=== PATIENT | female | born 1935 | race Caucasian/White ===

== ENCOUNTER 2022-06-18 17:32 | Emergency (ER) | payer MEDICARE ==
[~2022-06-18] VITALS: Ht 154.9 cm; Wt 46.7 kg
[2022-06-18 18:06] VITALS: BP 133/80
[2022-06-18 20:10] LABS: BASO % 0.2 % (0.0-1.0); HEMATOCRIT 38.7 % (37.0-47.0); LYMPH # 0.6 10*3/uL (1.3-4.4); MEAN CELL VOLUME 95.3 fl (81.0-99.0); MEAN CORPUSCULAR HGB 32.5 pg (27.0-31.0); MEAN CORPUSCULAR HGB CONC 34.1 g/dl (33.0-37.0); MEAN PLATELET VOLUME 10.1 fl (9.6-12.3); MONO # 0.1 10*3/uL (0.1-1.0); MONO % 1.3 % (3.0-9.0); NEUT # 4.7 10*3/uL (2.3-7.9); NEUT % 86.9 % (47.0-73.0); PLATELET COUNT AUTOMATED 387 10*3/uL (130-400); RED BLOOD COUNT 4.06 10*6/uL (4.10-5.10); WHITE BLOOD COUNT 5.4 10*3/uL (4.8-10.8)
[2022-06-18 20:27] LABS: ALKALINE PHOSPHATASE 46 U/L (46-116); BUN 11 mg/dl (9-23); CHLORIDE 103 mmol/L (98-107); CPK 194 U/L (34-171); CREATININE 0.87 mg/dL (0.55-1.02); POTASSIUM 2.9 mmol/L (3.4-5.1); SGPT/ALT 19 U/L (10-49); SODIUM 139 mmol/L (136-145); TOTAL PROTEIN 5.9 gm/dL (6.0-8.0)
[2022-06-18 20:39] LABS: ETHYL ALCOHOL < 3.0 mg/dl (<3)
[2022-06-18 22:13] LABS: BILIRUBIN Negative (Negative); BLOOD Negative (Negative); CLARITY Clear (Clear); COLOR Yellow (Yellow); GLUCOSE Negative (Negative); KETONE Trace (Negative); LEUKO ESTERASE 2+ (Negative); NITRITE Negative (Negative); UROBILINOGEN 0.2 E.U./dl (0.0-1.0)
[2022-06-18] MEDS ORDERED: COLESTIPOL HYDRO1 GM PO (22:26)
[2022-06-18] MEDS ORDERED: FAMOTIDINE40 MG PO (22:27)
[2022-06-18] MEDS ORDERED: AMLODIPINE BESYL5 MG PO (22:27)
[2022-06-18] MEDS ORDERED: PRAVASTATIN SOD20 MG PO (22:28)
[2022-06-18] MEDS ORDERED: Carafate1 GM PO (22:28)
[2022-06-18] MEDS ORDERED: PANTOPRAZOLE SO40 MG PO (22:29)
[2022-06-18] MEDS ORDERED: METOPROLOL TAR100 M1 PO (22:29)
[2022-06-18] MEDS ORDERED: ZIPRASIDONE HCL20 M1 PO (22:29)
[2022-06-18 22:30] LABS: URINE AMPHETAMINES Negative (1000ng/ml); URINE BARBITURATES Negative (200ng/ml); URINE BENZODIAZEPINES Negative (200ng/ml)
[2022-06-18] MEDS ORDERED: MEMANTINE HCL10 MG PO (22:30)
[2022-06-18 22:31] LABS: URINE CANNABINOIDS (THC) Negative (50ng/ml); URINE COCAINE Negative (300ng/ml); URINE METHADONE Negative (300ng/ml); URINE OPIATES Negative (300ng/ml); URINE PHENCYCLIDINE Negative (25ng/ml)
[2022-06-18 22:54] LABS: BACTERIA TRACE; EPITHELIAL CELLS 21-30; WBC 31-40 wbc/hpf (0-5)
[2022-06-18 23:29] VITALS: BP 122/71
[2022-06-19 01:28] VITALS: BP 103/57
[2022-06-19 02:23] VITALS: BP 94/56
[2022-06-19 04:03] VITALS: BP 108/62
[2022-06-19 04:27] VITALS: BP 123/69
[2022-06-19 07:47] VITALS: BP 125/69
== END 2022-06-19 15:42 | disposition admitted as inpatient to this hospital (09) ==
LOC: ED 17:32 → EDHOLD 06-19 15:30 → ED 06-19 15:42
PROVIDERS: Emergency Medicine
DX: F03.90 Unspecified dementia, unspecified severity, without behavioral disturbance, psychotic disturbance, mood disturbance, and anxiety (principal); Z20.822 Contact with and (suspected) exposure to COVID-19; E87.6 Hypokalemia; N39.0 Urinary tract infection, site not specified; Z13.89 Encounter for screening for other disorder

== ENCOUNTER 2022-06-19 13:19 | Inpatient (IN) | payer MEDICARE ==
[~2022-06-19 13:19] MED LIST: AMLODIPINE BESYL5 MG PO; COLESTIPOL HYDRO1 GM PO; Carafate1 GM PO; FAMOTIDINE40 MG PO; MEMANTINE HCL10 MG PO; METOPROLOL TAR100 M1 PO; PANTOPRAZOLE SO40 MG PO; PRAVASTATIN SOD20 MG PO; ZIPRASIDONE HCL20 M1 PO
[2022-06-19 20:00] VITALS: BP 158/79
[2022-06-20 07:15] LABS: BASO # 0.1 10*3/uL (0.0-0.1); BASO % 0.5 % (0.0-1.0); EOS # 0.2 10*3/uL (0.0-0.4); EOS % 1.5 % (1.0-4.0); LYMPH # 2.7 10*3/uL (1.3-4.4); LYMPH % 26.2 % (27.0-41.0); MEAN CELL VOLUME 96.2 fl (81.0-99.0); MEAN CORPUSCULAR HGB 33.1 pg (27.0-31.0); MEAN CORPUSCULAR HGB CONC 34.4 g/dl (33.0-37.0); MEAN PLATELET VOLUME 10.1 fl (9.6-12.3); MONO # 0.5 10*3/uL (0.1-1.0); MONO % 5.2 % (3.0-9.0); NEUT # 6.9 10*3/uL (2.3-7.9); NEUT % 66.4 % (47.0-73.0); PLATELET COUNT AUTOMATED 414 10*3/uL (130-400); RED BLOOD COUNT 4.47 10*6/uL (4.10-5.10); RED CELL DISTRI WIDTH 13.5 % (0-14.5); WHITE BLOOD COUNT 10.4 10*3/uL (4.8-10.8)
[2022-06-20 08:00] VITALS: BP 154/80
[2022-06-20 08:51] LABS: VITAMIN D, 25-HYDROXY 22.4 ng/mL (30-100)
[2022-06-20 11:28] LABS: THYROID STIM HORMONE (HS) 1.733 uIU/ml (0.550-4.780)
[2022-06-20 11:35] LABS: ALKALINE PHOSPHATASE 47 U/L (46-116); BUN 13 mg/dl (9-23); CHLORIDE 106 mmol/L (98-107); CREATININE 0.76 mg/dL (0.55-1.02); POTASSIUM 3.2 mmol/L (3.4-5.1); SGPT/ALT 23 U/L (10-49); SODIUM 141 mmol/L (136-145); TRIGLYCERIDES 98 mg/dl (<150)
[2022-06-20 11:37] LABS: CHOLESTEROL 117 mg/dL (<200); LDL CHOLESTEROL 40 mg/dL (9-159); TOTAL PROTEIN 6.1 gm/dL (6.0-8.0)
[2022-06-20 20:00] VITALS: BP 118/57
[2022-06-21 07:24] LABS: BUN 8 mg/dl (9-23); CHLORIDE 106 mmol/L (98-107); CREATININE 0.55 mg/dL (0.55-1.02); POTASSIUM 3.5 mmol/L (3.4-5.1); SODIUM 143 mmol/L (136-145)
[2022-06-21 07:57] VITALS: BP 117/73
== END 2022-06-21 17:14 | disposition short-term general hospital (02) | DRG 885 ==
LOC: 3N 13:19
PROVIDERS: Internal Medicine; ADMIT Psychiatry & Neurology Psychiatry; ATTEND Psychiatry & Neurology Psychiatry
PROC: GZHZZZZ Group Psychotherapy (ICD-10-PCS; principal; 2022-06-19)
DX: F33.2 Major depressive disorder, recurrent severe without psychotic features (principal); U07.1 COVID-19; G30.9 Alzheimer's disease, unspecified; F02.80 Dementia in other diseases classified elsewhere, unspecified severity, without behavioral disturbance, psychotic disturbance, mood disturbance, and anxiety; I10 Essential (primary) hypertension; K21.9 Gastro-esophageal reflux disease without esophagitis; E78.00 Pure hypercholesterolemia, unspecified; F20.9 Schizophrenia, unspecified; E87.6 Hypokalemia; D75.839 Thrombocytosis, unspecified; E55.9 Vitamin D deficiency, unspecified; Z79.899 Other long term (current) drug therapy

== ENCOUNTER 2022-06-21 18:28 | Inpatient (IN) | payer MEDICARE ==
[~2022-06-21] VITALS: Ht 147.3 cm; Wt 45.9 kg
[2022-06-21 18:30] VITALS: BP 134/68
[2022-06-21 20:00] VITALS: BP 122/72
[2022-06-22] VITALS: BP 118/69
[2022-06-22 07:46] LABS: BASO % 0.5 % (0.0-1.0); EOS % 0.5 % (1.0-4.0); HEMATOCRIT 42.7 % (37.0-47.0); LYMPH % 15.9 % (27.0-41.0); MEAN CELL VOLUME 98.4 fl (81.0-99.0); MEAN CORPUSCULAR HGB 32.9 pg (27.0-31.0); MEAN CORPUSCULAR HGB CONC 33.5 g/dl (33.0-37.0); MEAN PLATELET VOLUME 10.6 fl (9.6-12.3); MONO # 0.6 10*3/uL (0.1-1.0); MONO % 8.7 % (3.0-9.0); NEUT # 4.8 10*3/uL (2.3-7.9); NEUT % 74.2 % (47.0-73.0); PLATELET COUNT AUTOMATED 252 10*3/uL (130-400); RED BLOOD COUNT 4.34 10*6/uL (4.10-5.10); RED CELL DISTRI WIDTH 13.9 % (0-14.5); WHITE BLOOD COUNT 6.4 10*3/uL (4.8-10.8)
[2022-06-22 07:57] LABS: ACT PARTIAL THROMBO TIME 24.4 SECONDS (20.0-32.1)
[2022-06-22 08:00] VITALS: BP 120/63
[2022-06-22 08:04] LABS: ALKALINE PHOSPHATASE 38 U/L (46-116); BUN 14 mg/dl (9-23); CHLORIDE 109 mmol/L (98-107); CREATININE 0.69 mg/dL (0.55-1.02); POTASSIUM 4.2 mmol/L (3.4-5.1); SODIUM 143 mmol/L (136-145); TOTAL PROTEIN 5.7 gm/dL (6.0-8.0)
[2022-06-22 09:20] LABS: SGPT/ALT 18 U/L (10-49)
[2022-06-22 12:00] VITALS: BP 125/92
[2022-06-22 16:00] VITALS: BP 132/74
[2022-06-22 20:00] VITALS: BP 137/86
[2022-06-23] VITALS: BP 158/82
[2022-06-23 05:49] LABS: CHLORIDE 103 mmol/L (98-107); POTASSIUM 4.3 mmol/L (3.4-5.1); SODIUM 136 mmol/L (136-145)
[2022-06-23 05:54] LABS: CREATININE 0.71 mg/dL (0.55-1.02)
[2022-06-23 05:55] LABS: BUN 12 mg/dl (9-23)
[2022-06-23 06:31] LABS: BASO # 0.1 10*3/uL (0.0-0.1); BASO % 0.8 % (0.0-1.0); EOS # 0.1 10*3/uL (0.0-0.4); EOS % 1.1 % (1.0-4.0); LYMPH # 1.3 10*3/uL (1.3-4.4); LYMPH % 21.3 % (27.0-41.0); MEAN CELL VOLUME 97.2 fl (81.0-99.0); MEAN CORPUSCULAR HGB 32.6 pg (27.0-31.0); MEAN CORPUSCULAR HGB CONC 33.6 g/dl (33.0-37.0); MONO # 0.4 10*3/uL (0.1-1.0); MONO % 6.1 % (3.0-9.0); NEUT # 4.4 10*3/uL (2.3-7.9); NEUT % 70.5 % (47.0-73.0); PLATELET COUNT AUTOMATED 283 10*3/uL (130-400); RED BLOOD COUNT 4.32 10*6/uL (4.10-5.10); RED CELL DISTRI WIDTH 13.5 % (0-14.5); WHITE BLOOD COUNT 6.3 10*3/uL (4.8-10.8)
[2022-06-23 08:00] VITALS: BP 128/65
[2022-06-23 12:00] VITALS: BP 110/56
[2022-06-23 16:00] VITALS: BP 127/89
[2022-06-23 20:00] VITALS: BP 135/72
[2022-06-24] VITALS: BP 149/78
[2022-06-24 06:24] LABS: BASO # 0.1 10*3/uL (0.0-0.1); EOS % 0.6 % (1.0-4.0); HEMATOCRIT 39.5 % (37.0-47.0); LYMPH # 1.4 10*3/uL (1.3-4.4); LYMPH % 28.4 % (27.0-41.0); MEAN CELL VOLUME 96.3 fl (81.0-99.0); MEAN CORPUSCULAR HGB 32.7 pg (27.0-31.0); MEAN CORPUSCULAR HGB CONC 33.9 g/dl (33.0-37.0); MEAN PLATELET VOLUME 10.1 fl (9.6-12.3); MONO # 0.4 10*3/uL (0.1-1.0); MONO % 7.3 % (3.0-9.0); NEUT # 3.1 10*3/uL (2.3-7.9); NEUT % 62.5 % (47.0-73.0); PLATELET COUNT AUTOMATED 241 10*3/uL (130-400); RED CELL DISTRI WIDTH 12.9 % (0-14.5); WHITE BLOOD COUNT 4.9 10*3/uL (4.8-10.8)
[2022-06-24 06:32] LABS: CHLORIDE 102 mmol/L (98-107); POTASSIUM 3.6 mmol/L (3.4-5.1); SODIUM 134 mmol/L (136-145)
[2022-06-24 06:39] LABS: BUN 10 mg/dl (9-23); CREATININE 0.59 mg/dL (0.55-1.02)
[2022-06-24 08:00] VITALS: BP 132/55
[2022-06-24 12:00] VITALS: BP 119/67
[2022-06-24 16:00] VITALS: BP 117/78
[2022-06-24 20:00] VITALS: BP 135/72
[2022-06-25] VITALS: BP 105/47
[2022-06-25 08:00] VITALS: BP 111/54
[2022-06-25 12:00] VITALS: BP 113/94
[2022-06-25 14:48] LABS: BASO % 0.7 % (0.0-1.0); EOS # 0.1 10*3/uL (0.0-0.4); EOS % 1.7 % (1.0-4.0); HEMATOCRIT 38.8 % (37.0-47.0); LYMPH % 35.4 % (27.0-41.0); MEAN CELL VOLUME 94.4 fl (81.0-99.0); MEAN CORPUSCULAR HGB 32.6 pg (27.0-31.0); MEAN CORPUSCULAR HGB CONC 34.5 g/dl (33.0-37.0); MEAN PLATELET VOLUME 10.3 fl (9.6-12.3); MONO # 0.3 10*3/uL (0.1-1.0); MONO % 9.3 % (3.0-9.0); NEUT # 1.5 10*3/uL (2.3-7.9); NEUT % 52.6 % (47.0-73.0); PLATELET COUNT AUTOMATED 221 10*3/uL (130-400); RED BLOOD COUNT 4.11 10*6/uL (4.10-5.10); RED CELL DISTRI WIDTH 12.7 % (0-14.5); WHITE BLOOD COUNT 2.9 10*3/uL (4.8-10.8)
[2022-06-25 15:02] LABS: ALKALINE PHOSPHATASE 36 U/L (46-116); BUN 12 mg/dl (9-23); CHLORIDE 101 mmol/L (98-107); CREATININE 0.59 mg/dL (0.55-1.02); POTASSIUM 3.2 mmol/L (3.4-5.1); SGPT/ALT 12 U/L (10-49); SODIUM 134 mmol/L (136-145); TOTAL PROTEIN 5.2 gm/dL (6.0-8.0)
[2022-06-25 15:43] LABS: BILIRUBIN Negative (Negative); BLOOD Negative (Negative); CLARITY Clear (Clear); COLOR Yellow (Yellow); GLUCOSE Negative (Negative); KETONE Negative (Negative); LEUKO ESTERASE Negative (Negative); NITRITE Negative (Negative); SPECIFIC GRAVITY 1.015 (1.001-1.030); UROBILINOGEN 0.2 E.U./dl (0.0-1.0)
[2022-06-25 16:00] VITALS: BP 123/77
[2022-06-25 16:21] LABS: BACTERIA 1+; WBC 0-2 wbc/hpf (0-5)
[2022-06-25 20:00] VITALS: BP 165/82
[2022-06-26] VITALS: BP 124/65
[2022-06-26 06:12] LABS: BASO % 0.9 % (0.0-1.0); EOS # 0.1 10*3/uL (0.0-0.4); EOS % 1.8 % (1.0-4.0); LYMPH # 1.7 10*3/uL (1.3-4.4); LYMPH % 50.1 % (27.0-41.0); MEAN CELL VOLUME 95.6 fl (81.0-99.0); MEAN CORPUSCULAR HGB 32.6 pg (27.0-31.0); MEAN CORPUSCULAR HGB CONC 34.1 g/dl (33.0-37.0); MEAN PLATELET VOLUME 10.8 fl (9.6-12.3); MONO # 0.3 10*3/uL (0.1-1.0); MONO % 9.8 % (3.0-9.0); NEUT # 1.3 10*3/uL (2.3-7.9); NEUT % 37.1 % (47.0-73.0); PLATELET COUNT AUTOMATED 237 10*3/uL (130-400); RED BLOOD COUNT 4.29 10*6/uL (4.10-5.10); RED CELL DISTRI WIDTH 12.6 % (0-14.5); WHITE BLOOD COUNT 3.4 10*3/uL (4.8-10.8)
[2022-06-26 06:25] LABS: BUN 11 mg/dl (9-23); CHLORIDE 105 mmol/L (98-107); CREATININE 0.73 mg/dL (0.55-1.02); POTASSIUM 4.1 mmol/L (3.4-5.1); SODIUM 139 mmol/L (136-145)
[2022-06-26 08:00] VITALS: BP 106/78
[2022-06-26 12:00] VITALS: BP 115/61
[2022-06-26 16:00] VITALS: BP 132/84
[2022-06-27] VITALS: BP 126/66
[2022-06-27 06:15] LABS: BUN 10 mg/dl (9-23); CHLORIDE 103 mmol/L (98-107); CREATININE 0.65 mg/dL (0.55-1.02); POTASSIUM 3.4 mmol/L (3.4-5.1); SODIUM 137 mmol/L (136-145)
[2022-06-27 06:17] LABS: BASO % 0.5 % (0.0-1.0); EOS % 0.3 % (1.0-4.0); HEMATOCRIT 40.2 % (37.0-47.0); LYMPH # 1.2 10*3/uL (1.3-4.4); MEAN CORPUSCULAR HGB 32.6 pg (27.0-31.0); MEAN CORPUSCULAR HGB CONC 34.3 g/dl (33.0-37.0); MONO # 0.3 10*3/uL (0.1-1.0); MONO % 8.6 % (3.0-9.0); NEUT # 2.4 10*3/uL (2.3-7.9); NEUT % 61.3 % (47.0-73.0); PLATELET COUNT AUTOMATED 256 10*3/uL (130-400); RED BLOOD COUNT 4.23 10*6/uL (4.10-5.10); RED CELL DISTRI WIDTH 12.7 % (0-14.5)
[2022-06-27 08:00] VITALS: BP 135/69
[2022-06-27] MEDS ORDERED: LOPRESSOR25 MG PO (11:10)
[2022-06-27] MEDS ORDERED: HYDROXYZINE HCL25 MG PO (11:10)
[2022-06-27 12:00] VITALS: BP 100/50
[2022-06-28 03:06] LABS: TOTAL PROTEIN, SERUM 5.4 g/dL (6.0-8.5)
[2022-06-30 15:06] LABS: A/G RATIO 1.2 (0.7-1.7); ALBUMIN 2.9 g/dL (2.9-4.4); ALPHA-1-GLOBULIN 0.3 g/dL (0.0-0.4); BETA GLOBULIN 0.7 g/dL (0.7-1.3); GAMMA GLOBULIN 0.6 g/dL (0.4-1.8); GLOBULIN, TOTAL 2.5 g/dL (2.2-3.9); M-SPIKE Not Observed g/dL (Not Observed); PE INTERPRETATION Comment: (.)
== END 2022-06-27 16:23 | DRG 177 ==
LOC: 4E 18:28
PROVIDERS: Internal Medicine; Registered Nurse; Student in an Organized Health Care Education/Training Program; ADMIT Emergency Medicine; ATTEND Emergency Medicine
PROC: XW033E5 Introduction of Remdesivir Anti-infective into Peripheral Vein, Percutaneous Approach, New Technology Group 5 (ICD-10-PCS; principal; 2022-06-22)
DX: U07.1 COVID-19 (principal); G93.41 Metabolic encephalopathy; F32.2 Major depressive disorder, single episode, severe without psychotic features; E87.6 Hypokalemia; K21.9 Gastro-esophageal reflux disease without esophagitis; I10 Essential (primary) hypertension; E78.5 Hyperlipidemia, unspecified; F03.90 Unspecified dementia, unspecified severity, without behavioral disturbance, psychotic disturbance, mood disturbance, and anxiety; E55.9 Vitamin D deficiency, unspecified; D75.839 Thrombocytosis, unspecified; D70.9 Neutropenia, unspecified

== ENCOUNTER 2022-10-05 21:19 | Emergency (ER) | payer MEDICARE ==
[~2022-10-05] VITALS: Ht 160 cm; Wt 50.8 kg
[~2022-10-05 21:19] MED LIST changes: +HYDROXYZINE HCL25 MG PO; +LOPRESSOR25 MG PO
[2022-10-05 21:50] LABS: BASO # 0.1 10*3/uL (0.0-0.1); BASO % 0.9 % (0.0-1.0); EOS # 0.1 10*3/uL (0.0-0.4); EOS % 1.5 % (1.0-4.0); HEMATOCRIT 41.6 % (37.0-47.0); LYMPH # 2.1 10*3/uL (1.3-4.4); LYMPH % 30.4 % (27.0-41.0); MEAN CELL VOLUME 97.2 fl (81.0-99.0); MEAN CORPUSCULAR HGB CONC 32.9 g/dl (33.0-37.0); MEAN PLATELET VOLUME 9.7 fl (9.6-12.3); MONO # 0.5 10*3/uL (0.1-1.0); MONO % 6.8 % (3.0-9.0); NEUT # 4.1 10*3/uL (2.3-7.9); NEUT % 60.3 % (47.0-73.0); PLATELET COUNT AUTOMATED 353 10*3/uL (130-400); RED BLOOD COUNT 4.28 10*6/uL (4.10-5.10); WHITE BLOOD COUNT 6.8 10*3/uL (4.8-10.8)
[2022-10-05 22:05] LABS: ALKALINE PHOSPHATASE 59 U/L (46-116); BUN 9 mg/dl (9-23); CHLORIDE 102 mmol/L (98-107); POTASSIUM 4.1 mmol/L (3.4-5.1); TOTAL PROTEIN 6.6 gm/dL (6.0-8.0)
[2022-10-05 22:09] LABS: ETHYL ALCOHOL < 3.0 mg/dl (<3); SGPT/ALT < 7 U/L (10-49)
[2022-10-05 22:09] LABS: BILIRUBIN Negative (Negative); BLOOD Negative (Negative); CLARITY Clear (Clear); COLOR Yellow (Yellow); GLUCOSE Negative (Negative); KETONE Negative (Negative); LEUKO ESTERASE 3+ (Negative); NITRITE Negative (Negative); PH 6.5 (4.5-8.0); UROBILINOGEN 0.2 E.U./dl (0.0-1.0)
[2022-10-05 22:16] LABS: BACTERIA 1+; EPITHELIAL CELLS 21-30; URINE AMPHETAMINES Negative (1000ng/ml); URINE BARBITURATES Negative (200ng/ml); URINE BENZODIAZEPINES Negative (200ng/ml); URINE CANNABINOIDS (THC) Negative (50ng/ml); URINE COCAINE Negative (300ng/ml); URINE METHADONE Negative (300ng/ml); URINE OPIATES Negative (300ng/ml); URINE PHENCYCLIDINE Negative (25ng/ml); WBC 21-30 wbc/hpf (0-5)
== END 2022-10-06 03:46 ==
LOC: ED 21:19
PROVIDERS: Internal Medicine
DX: F03.90 Unspecified dementia, unspecified severity, without behavioral disturbance, psychotic disturbance, mood disturbance, and anxiety (principal); F63.81 Intermittent explosive disorder; N39.0 Urinary tract infection, site not specified; F41.9 Anxiety disorder, unspecified; I10 Essential (primary) hypertension; K21.9 Gastro-esophageal reflux disease without esophagitis; E78.5 Hyperlipidemia, unspecified; Z20.822 Contact with and (suspected) exposure to COVID-19; Z79.899 Other long term (current) drug therapy